=== PATIENT | female | born 1980 | race Caucasian/White ===

== ENCOUNTER 2019-02-16 14:05 | Emergency (ER) | payer OTHER ==
[2019-02-16 14:12] VITALS: BP 105/70; PULSE 84; TEMP 98.2; BMI 22.2
--- NOTE | 2019-02-16 14:17 | PDOC ---
Rapid Medical Evaluation Time Seen by Provider: 02/16/19 14:07 Medical Evaluation: Allergies Allergy/AdvReac Type Severity Reaction Status Date / Time No Known Allergies Allergy Verified 02/16/19 14:10 Vital Signs Temp Pulse Resp BP Pulse Ox 98.2 F 84 16 105/70 96 02/16/19 14:10 02/16/19 14:10 02/16/19 14:10 02/16/19 14:10 02/16/19 14:10 02/16/19 14:15 Patient complaints of: needlestick from pt during a code 99. Pt washed area and and states utd on tdap Patient on brief exam: left 2nd digit with small pinpoint area to lat aspect of digit Patient ordered for: exposure order set Patient to proceed to the ED Discharge Disposition - Diagnosis Exposure to blood or body fluid - Referrals - Patient Instructions - Post Discharge Activity
--- NOTE | 2019-02-16 14:30 | PDOC ---
History of Present Illness - General Chief Complaint: Blood/Body Fluid Exposure SJR Stated Complaint: FINGER STICK Time Seen by Provider: 02/16/19 14:07 - History of Present Illness Initial Comments: 02/16/19 14:27 38-year-old female with a past medical history significant for migraines presents for evaluation of a needle stick. She accidentally stuck herself with a safety pin while doing her neurological exam on the patient. She is unsure of the patient's HIV status. Patient HIV blood work is been ordered. Source patient blood work will be ordered, Past History - Past Medical History Allergies/Adverse Reactions: Allergies Allergy/AdvReac Type Severity Reaction Status Date / Time No Known Allergies Allergy Verified 02/16/19 14:10 Home Medications: Ambulatory Orders Mupirocin Cream [Bactroban 2% Cream -] 1 applic TP BID #1 tube 09/11/14 - Immunization History Immunization Up to Date: Yes (TETANUS 2013) - Suicide/Smoking/Psychosocial Hx Smoking History: Never smoked Hx Alcohol Use: No Drug/Substance Use Hx: No Review of Systems - Review of Systems Constitutional: Yes: See HPI *Physical Exam - Vital Signs Last Vital Signs Temp Pulse Resp BP Pulse Ox 98.2 F 84 16 105/70 96 02/16/19 14:10 02/16/19 14:10 02/16/19 14:10 02/16/19 14:10 02/16/19 14:10 - Physical Exam Comments: 02/16/19 14:28 HEAD: NC/AT EYES: Conjuntiva clear MS: Full ROM in all joints without edema NEUROLOGIC: No gross sensory or motor deficits, NVID SKIN: Normal color and temperature no lesions or rashes Medical Decision Making - Medical Decision Making 02/16/19 14:28 We'll hold off on HIV prophylaxis at this point. Blood work has been drawn and she will also test the source patient. 02/16/19 14:29 Post exposure prophylaxis has been declined by the patient. She does not feel the source patient is high risk. And she will also test the source patient. *DC/Admit/Observation/Transfer Diagnosis at time of Disposition: Exposure to blood or body fluid - Discharge Dispostion Disposition: HOME Condition at time of disposition: Stable Decision to Admit order: No - Referrals - Patient Instructions Printed Discharge Instructions: How to Handle Body Fluid Exposure -- Healthcare Worker Additional Instructions: Current to the emergency room for further issues otherwise follow-up with her primary care physician in 1-2 days for further evaluation and treatment options.
[2019-02-16 14:37] LABS: BASO % 0.8 % (0-2.0); EOS % 2.7 % (0-4.5); HEMATOCRIT 38.7 % (32.4-45.2); HEMOGLOBIN 13.1 GM/dL (10.7-15.3); LYMPH % 22.8 % (8-40); MCH 27.4 pg (25.7-33.7); MCHC 33.9 g/dl (32.0-36.0); MEAN CELL VOLUME 80.8 fl (80-96); MEAN PLT VOLUME 8.3 fl (7.5-11.1); MONO % 5.2 % (3.8-10.2); NEUT % 68.5 % (42.8-82.8); PLATELET COUNT 229 K/MM3 (134-434); RBC 4.79 M/mm3 (3.60-5.2); RDW 13.8 % (11.6-15.6); WHITE BLOOD COUNT 7.6 K/mm3 (4.0-10.0)
[2019-02-16 16:14] LABS: ALBUMIN 4.1 g/dl (3.4-5.0); BILIRUBIN,TOTAL 0.4 mg/dL (0.2-1); BLOOD UREA NITROGEN 9.7 mg/dL (7-18); CALCIUM 8.8 mg/dL (8.5-10.1); PHOSPHOROUS 3.8 mg/dL (2.5-4.9); POTASSIUM 4.2 mmol/L (3.5-5.1); TOT PROT 7.2 g/dl (6.4-8.2); URIC ACID 4.4 mg/dL (2.6-7.2)
== END 2019-02-16 14:40 | disposition home or self-care (01) ==
LOC: JERFT 14:05
DX: Z77.21 Contact with and (suspected) exposure to potentially hazardous body fluids (principal); S61.231A Puncture wound without foreign body of left index finger without damage to nail, initial encounter; W27.8XXA Contact with other nonpowered hand tool, initial encounter; Y93.F9 Activity, other caregiving; Y92.230 Patient room in hospital as the place of occurrence of the external cause; Y99.0 Civilian activity done for income or pay
CPT/HCPCS: 36415; 80053; 82465; 82977; 83615; 84100; 84478; 84550; 85025; 86317; 86706; 86803; 87340; 87389; 99281-25

== ENCOUNTER 2023-04-27 19:26 | Emergency (ER) | payer OTHER ==
[2023-04-27 19:38] VITALS: BP 110/71; PULSE 62; RESP 16; TEMP 97.7; BMI 22.9
== END 2023-04-27 20:37 | disposition home or self-care (01) ==
LOC: FER 19:26
DX: M79.605 Pain in left leg (principal); R22.42 Localized swelling, mass and lump, left lower limb
CPT/HCPCS: 93971-TC; 99284-25